=== PATIENT | male | born 1930 | race Caucasian/White ===

== ENCOUNTER 2019-03-11 04:08 | Inpatient (IN) | payer MEDICARE, MEDICAID ==
[~2019-03-11] VITALS: Ht 162.6 cm; Wt 61.7 kg
[~2019-03-11 04:08] MED LIST: ASPIR LOW81 MG PO; LOP50 PO; MEV20 PO; Z PO
[2019-03-11 04:15] VITALS: Ht 162.6 cm; Wt 61.7 kg
--- NOTE | 2019-03-11 04:25 | NUR ---
PT COMES INTO ED WITH COMPLAINT OF SOB AT HOME, GEN WEAKNESS WITH SHAKINESS AND DIZZINESS. PT ATTACHED TO FULL CORRUGATOR HELPER AND PULSE OXIMETRY. PT LUNG SOUNDS CTAB, CHEST RISE/FALL SYMMETRIC, E/U BREATHING. AOX4 ABLE TO RESPOND TO COMMANDS, PERSIAN SPEAKING CLEAR SPEECH, NO FACIAL DROOP NOTED. PT DENIES ABD PAIN.
--- NOTE | 2019-03-11 04:58 | NUR ---
CINEMA OR THEATRE MANAGER AT BEDSIDE FOR CHEST XRAY
--- NOTE | 2019-03-11 05:08 | NUR ---
ZULLY EMT AT BEDSIDE FOR EKG.
[2019-03-11] MEDS ORDERED: LEVOTHYROXIN0.025 M2 PO (05:41)
[2019-03-11] MEDS ORDERED: LOVASTATIN20 MG PO (05:41)
[2019-03-11] MEDS ORDERED: ZESTRIL5 MG PO (05:41)
[2019-03-11 05:56] LABS: BASOPHIL % 0.5 % (0-2); PLATELET COUNT 169 x10^3mcL (130-400)
[2019-03-11 05:59] LABS: RED CELL DISTRIBUTION WIDTH 14.6 % (11.5-14.5)
[2019-03-11 06:09] LABS: CALCIUM 8.2 mg/dL (8.5-10.1); CHLORIDE SERUM 109 mmol/L (98-107); CREATININE SERUM 1.3 mg/dL (0.7-1.3); GLUCOSE SERUM 80 mg/dL (74-106); POTASSIUM SERUM 5.3 mmol/L (3.5-5.1); SODIUM SERUM 143 mmol/L (136-145)
[2019-03-11 06:13] LABS: ALKALINE PHOSPHATASE 78 U/L (46-116); ALT/SGPT 10 U/L (16-63); AST/SGOT 10 U/L (15-37); BILIRUBIN TOTAL 0.51 mg/dL (0.20-1.00); TOTAL PROTEIN, SERUM 6.4 g/dL (6.4-8.2)
[2019-03-11 06:15] LABS: ALBUMIN 3.3 g/dL (3.4-5.0)
--- NOTE | 2019-03-11 07:09 | NUR ---
REPORT RECEIVED FROM ABBIE REEDER.
--- NOTE | 2019-03-11 07:56 | NUR ---
REPORT GIVEN TO GEETHA LEIVA TO ASSUME CARE OF PT.
--- NOTE | 2019-03-11 08:05 | NUR ---
PT ADMITTED AT THIS TIME FROM ER, ACCOMPANIED BY AND DAUGHTER. PT AOX4, RESPONDS TO VERBAL STIMULUS, NO FACIAL DROOP, EQUAL DELIVERY DIRECTOR, SPEECH CLEAR. RESP E/U ON 2L NC, EQUAL CHEST RISE, LUNGS CTA. TREMORS TO BUE NOTED, PT AMBULATORY W/ WALKER, GAIT SLOW AND STEADY. PER DAUGHTER, PT HAS NO HX OF DM, NEUROPATHY, FALLS OR SEIZURES. PT DENIES HEADACHE, PAIN, SOB OR N/V. BED IN LOWEST POSITION AND CALL LIGHT WITHIN REACH. AWAITING ORDERS, WILL CONTINUE TO MONITOR.
[2019-03-11 08:44] VITALS: BP 114/71
[2019-03-11 11:56] VITALS: BP 137/62
--- NOTE | 2019-03-11 12:39 | NUR ---
PT SITTING UPRIGHT IN BED HAVING LUNCH, AOX4, RESP E/U ON 2L NC, NO ACUTE DISTRESS NOTED. NO DIFFICULTY CHEWING OR SWALLOWING OBSERVED, TOLERATING DIET WELL. PER DAUGHTER, PT WAS ABLE TO AMBULATE TO RESTROOM USING WALKER, GAIT AND BALANCE STEADY. BED IN LOWEST POSITION AND CALL LIGHT WITHIN REACH. WILL CONTINUE TO MONITOR.
--- NOTE | 2019-03-11 14:39 | NUR ---
RECEIVED ORDER TO TRANSFER PATIENT TO HIGHER LEVEL OF CARE FOR POSS. CVA. BLANKBOOK FORWARDER TRAVON MOODY MADE AWARE. CONTACTED ARCHITECTURAL ENGINEERING TEACHER CM. GONZALEZ OVER THE PHONE, INSTRUCTED TO CALL [facility] AFTER [facility] [phone]. CONTACTED THEM INSTRUCTED AND INFO. PROVIDED.
--- NOTE | 2019-03-11 14:53 | NUR ---
RECEIVED CALL BACK FROM [facility] CLINICAL SAFETY SPECIALIST LILLY PÉREZ, STATED SHE IS UNABLE TO FIND THIS PATIENT ON [facility]. CASHIER RECEPTIONIST NOTIFIED, SHE WILL CONTINUE TO FOLLOW UP.
--- NOTE | 2019-03-11 15:30 | NUR ---
REPORT FROM OUT GOING FURNACE SETTER ABOUT ORDER FROM MD TO TRANSFER PATIENT TO [facility].
[2019-03-11 16:17] VITALS: BP 137/50
--- NOTE | 2019-03-11 16:18 | NUR ---
RECEIVED CALL FROM FAY AT [facility], STATES PATIENT'S INSURACE BELONG TO [facility] [place] HAVE TO TAKE THIS PATIENT. RESEARCH SUBJECT, COSTA LANDRY MADE AWARE.
--- NOTE | 2019-03-11 16:30 | NUR ---
CALLED HERMELINDA AT [facility] AND INFORMED ABOUT NEED FOR BED FOR NEURO PATIENT.WILL BE WORKING ON IT.
--- NOTE | 2019-03-11 16:40 | NUR ---
[id number] TO [facility] NEEDED PAPERWORKS;[phone] AT 1648-CONFIRMATION THAT PAPERWORKS RECEIVED. AT 1815- HERMELINDA FROM [facility] CALLED AND STATED DR RENNER IS ACCEPTING BUT WE NEEDED INS AUTHORIZATION FOR TRANSFER. [id number]- SPOKE TO LISA ABOUT ABOVE CONVERSATIONN FROM HERMELINDA AND SHE STATED SHE WELL CALL HERMELINDA AND WILL CALL ME BACK.
--- NOTE | 2019-03-11 17:30 | NUR ---
PT RESTING IN BED, AOX3, RESP E/U ON 2L NC. DENIES CHEST PAIN OR SOB. NO ACUTE DISTRESS NOTED. IV TO LFA W/ NO SIGNS OF INFILTRATION, IVF INFUSING WELL. BED IN LOWEST POSTION AND CALL LIGHT WITHIN REACH. WILL ENDORSE TO ONCOMING NURSE.
--- NOTE | 2019-03-11 18:14 | NUR ---
RECEIVED CT-HEAD AND CAROTID US RESULTS, CALLED AND REPORTED TO DR. GUZMAN WHO IN COVERING FOR DR. MEDRANO AT THIS TIME. I RECOMMENDED TELE NEURO. CONSULT SINCE NO BED AVAILABLE FROM EITHER [facility] OR [facility]. ORDER RECEIVED TO HAVE TELE NEURO CONSULT AND WILL PROCESS ORDERED.
--- NOTE | 2019-03-11 18:23 | NUR ---
AT 1825- LISA CALLED BACK AND STATED SPOKE TO HERMELINDA AND WILL CALL US BACK WITH MD DECISION.
--- NOTE | 2019-03-11 18:26 | NUR ---
AT 1700-SPOKE TO FAMILY AT BEDSIDE AND UPDATED POC AND TRANSFER.
--- NOTE | 2019-03-11 18:27 | NUR ---
AT 1640-FAX FACE SHEET AND PAPERWORKS TO [facility] PER INSTRUCTED BY SIZE CUTTER [phone] AT 1648-CONFIRMATION RECEIVED.
--- NOTE | 2019-03-11 18:33 | NUR ---
CALLED TO TELE NEURO: [phone], FAX THE INFO.PER THEIR REQUESTED, AWAITING NEUROLOGIST TO CALL BACK.
--- NOTE | 2019-03-11 18:54 | NUR ---
COMPUTER WITH [employer]ER[employer] PLACED IN PATIENT ROOM AND NEUROLOGIST DR. GIVENS IS INTERVIEWING THE PATIENT/FAMILY AT THIS TIME.
--- NOTE | 2019-03-11 19:03 | NUR ---
vilma from [facility] called back and stated patient got accepted to tele station 2 room #331-a, report number [phone]. called bairon back and gave information and to please update family of above. also told bairon to have patient pass by ed/admitting for quick registration.
[2019-03-11 19:07] VITALS: BP 137/50
--- NOTE | 2019-03-11 19:11 | NUR ---
TELE CONSULT COMPLETED AT THIS TIME.
--- NOTE | 2019-03-11 19:22 | NUR ---
RECEIVED REPORT FROM NURSE INIGUEZ. PT FOR TRANSFER TO [facility], TELE STATION 2, ROOM 331 A. FAMILY MEMBERS IN ROOM, INCLUDING DAUGHTER CALDERON VERDIN, WHO ARE AWARE PT FOR TRANSFER TO [facility].
--- NOTE | 2019-03-11 19:23 | NUR ---
PT AWAKE, ALERT, GENERALIZED WEAKNESS. UPPER EXTREMITY TREMORS NOTED. BREATHING EVEN AND UNLABORED ON 2LPM OF O2 VIA NC. SINUS BRADYCARDIC, HR 48/MIN.
--- NOTE | 2019-03-11 19:34 | NUR ---
CALLED [facility], TELE STATION, TALKED TO NURSE COBY, SHE ASKED I CALL BACK IN 10 MINUTES. INFORMED PT'S AND PT'S FAMILY MEMBERS [facility] TO STREET PHOTOGRAPHER PT IN 30 MINUTES.
[2019-03-11 19:35] VITALS: BP 115/52
--- NOTE | 2019-03-11 19:49 | NUR ---
REPORT GIVEN TO NURSE TENORIO OF TELE STATION 2, [facility]. REPORT GIVEN TO [facility] PERSONNEL HERE TO TRANSPORT PT. TELEMONITOR RETURNED TO PT. PT HAS SALINE LOCK.
--- NOTE | 2019-03-11 19:55 | NUR ---
TRANSFERRED TO [facility] VIA [facility].
== END 2019-03-11 19:55 | disposition short-term general hospital (02) | DRG 66 ==
LOC: ED 04:08 → MU 07:40 → DU 16:39
PROVIDERS: Emergency Medicine; ADMIT Internal Medicine Pulmonary Disease
DX: I63.9 Cerebral infarction, unspecified (principal); G83.24 Monoplegia of upper limb affecting left nondominant side; R47.81 Slurred speech; E86.0 Dehydration; I10 Essential (primary) hypertension; K21.9 Gastro-esophageal reflux disease without esophagitis; E78.5 Hyperlipidemia, unspecified; E03.9 Hypothyroidism, unspecified; E87.5 Hyperkalemia; I25.2 Old myocardial infarction; Z79.82 Long term (current) use of aspirin
CPT/HCPCS: 83880; G0378; J1650; J2405; J7030; J7050; Q0092